=== PATIENT | female | born 1980 | race Caucasian/White ===

== ENCOUNTER → 2024-01-29 06:36 | Day surgery (SDC) | payer OTHER, SELFPAY ==
[2024-01-29 09:02] LABS: Glucose - Point of Care 104 mg/dl (70-99)
== END ==
LOC: GI 06:36
PROVIDERS: ATTENDING PHYSICIAN Internal Medicine Gastroenterology
DX: D12.0 Benign neoplasm of cecum (principal); R10.13 Epigastric pain; D50.0 Iron deficiency anemia secondary to blood loss (chronic)
CPT/HCPCS: 45385; 43239; 88305; 82962